=== PATIENT | female | born 2000 | race Asian ===

== ENCOUNTER 2022-08-07 17:37 | Emergency (ER) | payer SELFPAY ==
[~2022-08-07] VITALS: Ht 157.5 cm; Wt 65.8 kg
[2022-08-07 17:37] VITALS: BP_SYST 132
[2022-08-07] MEDS ORDERED: NS 1000 ML IV.SOLN IV ONE (18:45)
[2022-08-07 19:53] VITALS: BP_SYST 122
== END 2022-08-07 20:13 | disposition left against medical advice (07) ==
LOC: SED 17:37
DX: R10.84 Generalized abdominal pain (principal); R55 Syncope and collapse; R11.2 Nausea with vomiting, unspecified; R19.7 Diarrhea, unspecified; Z79.899 Other long term (current) drug therapy
CPT/HCPCS: 71045; 93005; 99283